=== PATIENT | male | born 1975 ===

== ENCOUNTER 2021-04-24 16:21 | Emergency (ER) | payer SELFPAY ==
[~2021-04-24] VITALS: Ht 177.8 cm; Wt 70.3 kg
[2021-04-24] MEDS ORDERED: IBUP600T27 PO (16:58)
[2021-04-24] MEDS ORDERED: CEPH-322 PO (16:58)
[2021-04-24 17:01] VITALS: BP 136/83
== END 2021-04-24 17:38 | disposition home or self-care (01) ==
LOC: ER 16:21
DX: S90.822A Blister (nonthermal), left foot, initial encounter (principal); S90.821A Blister (nonthermal), right foot, initial encounter; F17.210 Nicotine dependence, cigarettes, uncomplicated; F12.10 Cannabis abuse, uncomplicated; X58.XXXA Exposure to other specified factors, initial encounter; Y93.89 Activity, other specified; Y92.89 Other specified places as the place of occurrence of the external cause; Y99.8 Other external cause status